=== PATIENT | male | born 1975 ===

== ENCOUNTER 2018-05-23 17:28 | Emergency (ER) | payer OTHER ==
[2018-05-23 17:35] VITALS: RESP 18; O2SAT 99
[2018-05-23] MEDS ORDERED: DiphenhydrAMINE 50 mg/ml Inj IVP STA (17:52)
--- NOTE | 2018-05-23 17:55 | ED PDOC ---
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 states yesterday he was working outside and came in contact with poison vicenta during the afternoon. Later on in the evening pt. developed rash on face, abdomen, and both arms. Took Benadryl earlier today without relief. Denies fever, throat swelling, SOB. Past Medical History Reviewed: Historical Data, Nursing Documentation, Vital Signs Vital Signs: Last Vital Signs Temp 97.4 F L 05/23/18 17:31 Pulse 83 05/23/18 17:31 Resp 18 05/23/18 17:31 BP 118/76 05/23/18 17:31 Pulse Ox 99 05/23/18 17:31 - Surgical History Surgical History: No Surg Hx - Family History Family History: States: No Known Family Hx - Home Medications Home Medications: Ambulatory Orders Medication Instructions Recorded DiphenhydrAMINE [Benadryl] 50 mg PO Q6 PRN #16 cap 05/23/18 predniSONE [predniSONE Tab] 5 mg PO DAILY #67 tab 05/23/18 - Allergies Allergies/Adverse Reactions: Allergies Allergy/AdvReac Type Severity Reaction Status Date / Time No Known Allergies Allergy Verified 05/23/18 17:31 Review of Systems ROS Statement: Except As Marked, All Systems Reviewed And Found Negative Eyes: Positive for: Eyelid Inflammation Skin: Positive for: Rash Physical Exam - Physical Exam Appears: Positive for: Well, Non-toxic, No Acute Distress Skin: Positive for: Normal Color, Warm, Rash (scattered erythematous patches with some vesicles arranged in linear array on b/l forearms, chest, abdomen, face) Eye Exam: Positive for: EOMI, PERRL, Periorbital swelling. Negative for: Conjunctival injection (b/l) ENT: Positive for: Normal ENT Inspection. Negative for: Tonsillar Swelling Cardiovascular/Chest: Positive for: Regular Rate, Rhythm Respiratory: Positive for: Normal Breath Sounds. Negative for: Stridor, Respiratory Distress Neurologic/Psych: Positive for: Alert, Oriented (x3) - ECG O2 Sat by Pulse Oximetry: 99 - Progress ED Course And Treament: Benadryl 50mg IV, solu-medrol 125mg IV, pepcid 20mg IV ordered. 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 Re-evaluation Time: 19:31 (Reports swelling has decreased along with itching but rash persists. Denies SOB, throat swelling. ) Condition: Re-examined, Improved Disposition - Clinical Impression Clinical Impression: Rhus dermatitis - Patient ED Disposition Is Patient to be Admitted: No - Disposition Referrals: [facility] [Outside] Disposition: Routine/Home Disposition Time: 19:32 Condition: IMPROVED Additional Instructions: FOLLOW UP WITH [facility] FOR FURTHER EVALUATION RETURN TO ED IMMEDIATELY IF SYMPTOMS WORSEN COMFORT WEN, thank you for letting us take care of you today. Your provider was Manasa Blancas MD and you were treated for ALLERGIC REACTION,DIFFICULTY BREATHING. The emergency medical care you received today was directed at your acute symptoms. If you were prescribed any medication, please fill it and take as directed. It may take several days for your symptoms to resolve. Return to the Emergency Department if your symptoms worsen, do not improve, or if you have any other problems. Please contact your doctor or call one of the physicians/clinics you have been referred to that are listed on the Patient Visit Information form that is included in your discharge packet. Bring any paperwork you were given at discharge with you along with any medications you are taking to your follow up visit. Our treatment cannot replace ongoing medical care by a primary care provider outside of the emergency department. Thank you for allowing the [facility] team to be part of your care today. If you had an X-Ray or CT scan: A Radiologist will review the ED reading if any change in treatment is needed we will contact you. If you had a blood, urine, or wound culture: It will take several days for the results, if any change in treatment is needed we will contact you. If you had an STI test: It will take 48 hours for the results. Please call after 1 week if you have not heard back. Prescriptions: DiphenhydrAMINE [Benadryl] 50 mg PO Q6 PRN #16 cap PRN Reason: Itching / Pruritus predniSONE [predniSONE Tab] 5 mg PO DAILY #67 tab Instructions: Poison [place] Forms: [employer] ([place])
[2018-05-23] MEDS ORDERED: DiphenhydrAMINE 50 mg/ml Inj ONE (17:58)
[2018-05-23 19:48] VITALS: BP 129/62; PULSE 87; TEMP 97.7
== END 2018-05-23 19:45 | disposition home or self-care (01) ==
LOC: H.ER 17:28
DX: L23.7 Allergic contact dermatitis due to plants, except food (principal)
CPT/HCPCS: 96374; 96375; 99283; J1200; J2930